=== PATIENT | female | born 1980 | race Caucasian/White ===

== ENCOUNTER 2021-12-01 13:30 | Outpatient (RCR) | payer MEDICARE, MEDICAID, SELFPAY | END 2022-09-22 23:59 | disposition home or self-care (01) | PROVIDERS: PCP Physician Assistant Medical; Visit Provider Physician Assistant | DX: Z51.89 Encounter for other specified aftercare (principal) ==

== ENCOUNTER 2022-03-04 13:45 | Outpatient (RCR) | payer MEDICARE, MEDICAID, SELFPAY ==
--- NOTE | 2021-12-02 10:59 | PT.OPDNX ---
PT [place] [facility] Daily Note PT [facility] Out[facility] Daily Note Start: 09/07/21 16:13 Freq: Status: Active Protocol: Document 12/01/21 16:04 ROQUE (Rec: 12/01/21 16:08 ROQUE [id number]) E-signed By NAMITA PelaezT, MS PT OP Daily Progress Note Visit Information Note Type Recert/Progress Note Visit Number [id number] Insurance Authorized Visits - Physician Authorized Visits Eval and treat Insurance Information Recert Due Date 02/16/22 Insurance Name Medicare B,Medicaid Medical Diagnosis Bilat. knee OA - patellofemoral and medial Treating Diagnosis Core weakness Quad weakness Subjective Subjective Pt reports her knees have continued to improve overall but fatigues quickly with pain in lateral R knee with extended standing. Worked 2 shifts to help short-staffing issues with elevated B knee and LS pain following. LS has been more painful this week and returns to [place] soon. Pain Comments R knees 0-4/10, L knee 0-3/10 LS 0-4/10 Objective Other/Pertinent Objective Gait: without AD improved quality with increased velocity, increased B stride length and B toe off. Patient Instructed in Risks/Benefits Yes Therapeutic Exercise Therapeutic Exercise Minutes (minutes) 30 Therapeutic Exercise: To Restore Recumb bike 8 min L4 for warm- Functional Status up and endurance calf stretching, quad stretching Progressed to 6 bridging 6 x 3 1 sec hold Supine may alt LE lifts 10 x 3 Progressed leg press 90# B 12 x 3 Progressed HS curl machine 30# 15 x 3 Progressed SLS light 1 UE support at counter Progressed to rows 3 plates and B shoulder ext 2.5 plates on CC standing partial tandem balance 8 x 3 each Side stepping progressed 20' x 6, 2 sets Manual Therapy Techniques Manual Therapy Minutes (minutes) 15 Manual Therapy Techniques *decreased B knee and LS pain following (03/15) STM/TPR B distal quad, ITB and distal HS Foam roller to length of B quad and ITB B LE long axis distraction with belt Patellar mobs Knee AP mobs G3-4 Other Interventions Provided Other Interventions Provided Ultrasound 12 min to B distal quads x 6 min each. 1.5 mHz Other Interventions Timed Minutes 12 Treatment Minutes Timed Code Treatment Minutes 57 Total Treatment Time 57 Billing Units Manual Therapy Units 1 Therapeutic Exercise Units 2 Ultrasound Units 1 Assessment/Impression Assessment/Impression Good response again to all activities today with minimal B knee and LS pain following. Elevated sxs after returning to 2 work shifts but sxs have improved in the days since. Pt remains deconditioned with continued B core and LE weakness leading to episodic elevations in B knee and LS pain with WBing activities. She has performed an FCE and is awaiting results to determine her level of disability. Excellent response to all exercises and progressions today with decreased fatigue levels with pt able to krupa increased session intensity without elevation in sxs. Pt will benefit from continued skilled PT services, progressing as able. Plan of Care Physical Therapy Goals 1. Pt. will be indep. with HEP for self maintenance in 8 weeks. Progressing. 2. Pt. will be report improved ability to walk with less bilat. knee pain in 8-12 weeks. Progressing 3. Pt. will be able to squat down for ADL's better in 8-12 weeks. Progressing 4. Pt will display improved strength for B hip ABD and ext >4/5 to improve quality of gait. Progressing. Daily Plan of Care Continue per POC Recertification Information Initial Certification Date 08/20/21 Recertification Start Date 11/18/21 Recertification Due Date 02/16/22 Reasons to Continue Skilled Therapy See assessment Rehabilitation Potential Good due to deconditioning and PMH. Continued Plan of Care and Interventions Continued MT, TE, NM re-ed 1x per week for 6-10 additional PT visits, transitioning to I sx management when pt moved to [place] in late December 2021. Provider Signature Shows Agreement With POC & Medical Necessity Physician Comment/Change Comment or Changes Physician NPI Number #
== END 2022-06-15 08:02 | disposition home or self-care (01) ==
PROVIDERS: PCP Physician Assistant Medical; Referring Provider Physician Assistant; Visit Provider Physician Assistant Surgical
DX: M17.0 Bilateral primary osteoarthritis of knee (principal); Z51.89 Encounter for other specified aftercare
CPT/HCPCS: 97035; 97110; 97140

== ENCOUNTER 2022-05-12 06:23 | Day surgery (SDC) | payer MEDICARE, MEDICAID, SELFPAY ==
--- NOTE | 2022-04-19 11:25 | SUR.PREOP ---
04/19/22 Had a brief phone visit with patient as she already had pre-op teaching before her surgery was postponed. She will schedule a pre-op H&P. Otherwise, denies questions. Danna REAL
[2022-05-12] VITALS (26 sets, daily range): BP systolic 86–148; BP diastolic 37–101; PULSE 53–101; RESP 16–20; TEMP 35.6–36.9; O2SAT 93–100; BMI 40.5
[2022-05-12] MEDS: LACTATED RINGERS 1000 ML 1,000 ML 100 ML IV (06:40)
[2022-05-12 07:06] LABS: Ur HCG Qualitative* Negative (Negative)
[2022-05-12] MEDS: CELECOXIB 200 MG CAPSULE PO (07:17)
[2022-05-12] MEDS: OXYCODONE (CR) 10 MG TAB.ER.12H PO (07:17)
[2022-05-12] MEDS: ACETAMINOPHEN 500 MG TABLET 1000 MG PO ×3 (07:17→20:13)
--- NOTE | 2022-05-12 07:47 | W.ANESCHARGE ---
Anesthesia Charges Start Date/Time Anesthesia Start Date: 05/12/22 Anesthesia Start Time: 08:41 Stop Date/Time Anesthesia Stop Date: 05/12/22 Anesthesia Stop Time: 11:15
[2022-05-12] MEDS: SODIUM CHLORIDE 0.9 % (FLUSH) 10 ML SYRINGE IVF (07:58)
--- NOTE | 2022-05-12 08:02 | SUR.PREOP ---
TIME?OUT:?0802 PT/RN/MDA?VERIFICATION?OF?SURGICAL?SITE,?PROCEDURE,?AND?CONSENT OBTAINED?PRIOR?TO?INVASIVE?PROCEDURE.
[2022-05-12] MEDS: fentaNYL 100 MCG/2 ML inj IVP (08:04)
[2022-05-12] MEDS: MIDAZOLAM HCL 1 MG/ML inj IVP (08:04)
--- NOTE | 2022-05-12 08:09 | P.NB_ITS ---
Nerve Block Nerve Block Time Seen by Provider: 08:06 Date Seen: 05/12/22 Type of block requested by surgeon for post-operative analgesia: geniculars Side: left Time out performed: Yes Verification of patient name: Yes Verification of date of : Yes Site marking: site marked Name of person performing procedure: Aidan Continuous monitoring Was continuous monitoring of O2 sat, B/P, environmental monitoring technician, recorded every 15 minutes?: Yes Procedure Checklist: sterile prep, needles and gloves Medications given in 5ml increments after negative aspiration: Ropivicaine %: 0.5 mL: 9 Needle gauge: 25 Patient tolerated procedure well: Yes Block Charges Block Charge (with Pro Fee): Genicular Nerve Block Use of Ultrasound Machine for Block: No
--- NOTE | 2022-05-12 08:09 | W.PM.NB ---
Nerve Block Nerve Block Time Seen by Provider: 08:06 Date Seen: 05/12/22 Type of block requested by surgeon for post-operative analgesia: adductor canal Side: left Time out performed: Yes Verification of patient name: Yes Verification of date of : Yes Site marking: site marked Name of person performing procedure: Aidan Continuous monitoring Was continuous monitoring of O2 sat, B/P, tomato pulper operator, recorded every 15 minutes?: Yes Procedure Checklist: sterile prep, needles and gloves Ultrasound guided. Images saved: Yes Medications given in 5ml increments after negative aspiration: Ropivicaine %: 0.5 mL: 20 Needle gauge: 20 Decadron (mg): 10 Precedex (mcg): 25 Patient tolerated procedure well: Yes Additional comments: Needle noted adjacent to nerve Block Charges Block Charge (with Pro Fee): Femoral Nerve Use of Ultrasound Machine for Block: Yes- US Guidance/pain block
--- NOTE | 2022-05-12 10:23 | CRLHL7_ITS ---
For Patients: As a result of the Cures Act, medical imaging exams and procedure reports are released immediately into your electronic medical record. You may view this report before your referring provider. If you have questions, please contact your health care provider. Indication: Postop TKA Technique: Two views left knee Findings/Impression: Hardware from a left total knee arthroplasty is in satisfactory position. Bone alignment is normal. No sign of acute fracture. Postop changes are within normal limits. Dictated by Colten Samaniego MD @ 05/12/2022 12:03:39 PM (Electronically Signed)
--- NOTE | 2022-05-12 10:26 | P.ORPRC_ITS ---
Procedure Note Date of procedure: 05/12/22 Procedure: PREOPERATIVE DIAGNOSIS: Left knee osteoarthritis POSTOPERATIVE DIAGNOSIS: Left knee osteoarthritis NAME OF OPERATION: Left total knee arthroplasty SURGEON: Timur Marin MD REPAIR ARMATURE WINDER HELPER: Daniel Aguilar PA-C ANESTHESIA: Spinal ESTIMATED BLOOD LOSS: 0 mL COMPLICATIONS: None SPECIMENS: None DRAINS: None PREOPERATIVE ANTIBIOTICS: Ancef 2 grams, antibiotic impregnated cement IMPLANTS: 1. J&J Attune # 6 narrow posterior stabilized femur 2. #4 fixed-bearing tibia, 14 mm x 50 mm stem 3. #6 posterior stabilized, 5 mm fixed-bearing polyethylene 4. 38 patella INDICATIONS: The patient is a 42-year-old with a longstanding history of severe, unrelenting left knee pain secondary to end-stage (grade IV) left knee osteoarthritis. Despite appropriate nonoperative management, including activity modification, anti-inflammatories, [id number] pain medication, bracing, physical therapy, and injections they continue to have pain and disability. Operative intervention was offered. The risks, benefits and expected outcomes were discussed in detail. These included but were not limited to: Infection, bleeding, injury to blood vessel or nerve, venous thromboembolism. All questions were answered to their satisfaction. Use of an assistant professor of chemistry was necessary throughout the case for patient positioning and safety, soft tissue retraction, and closure. A modifier 22 should be applied to this case. The patient's weight of 114 kg with a BMI of 40.6 kg/meter sq made exposure difficult. Additionally, because of the obesity a stemmed tibial component was used to reduce the risk of aseptic loosening. All of these factors added more than 50% of the time typically required to complete the case. PROCEDURE: Spinal anesthesia was administered. The patient was placed supine on the operating table. The assistant professor of chemistry made sure the patient was positioned appropriately. The lower extremity was prepped and draped in the usual sterile fashion. The limb was exsanguinated with the Travis bandage. The pneumatic tourniquet was inflated to 300 mmHg. A standard anterior incision was made with the knee in flexion. Subcutaneous dissection was sharply taken through fascial layer #1. Full-thickness medial and lateral flaps were elevated. The assistant professor of chemistry retracted the soft tissues and protected them throughout the case. A standard medial parapatellar approach was made. The patella was everted. The infrapatellar fat pad was preserved. The menisci and cruciate ligaments were sharply d?brided. Marginal osteophytes were d?brided with the rongeur. The drill was used to penetrate the femoral canal. The canal was aspirated and irrigated with pulse lavage. The intramedullary femoral guide was placed for a 5-degree valgus cut, removing 10 mm off the distal femur. The saw was used to make the cut. Whitesides line and the trans epicondylar axis were marked. The femoral sizing guide was pinned onto the distal femur. Three degrees of external rotation nicely parallels the transepicondylar axis. Pins were placed for posterior referencing. The four-in-one cutting guide was pinned onto the distal femur. The anterior, posterior, and chamfer cuts were made. The assistant professor of chemistry protected the collateral ligaments. The box cutting guide was pinned. The box cuts were made. The boxed trial was placed and was an excellent fit. Drill holes for the lugs were made. Attention was then turned to the proximal tibia. The extramedullary tibial guide was placed for a neutral varus/valgus cut with 5 degrees of posterior slope, removing 2 mm based off the medial tibial surface. The assistant professor of chemistry protected the collateral ligaments and the neurovascular bundle. The saw was used to make the cut. Trial components were placed. The knee was tight in both flexion and extension. Therefore, the guide was repaired and, advancing it 4 more mm distally. The saw was used to make the cut again. Trial components were placed and now the knee was nicely balanced in both flexion and extension. The trial components were removed. The tray was placed in appropriate rotation, parallel to our tibial cutting pins. It was pinned by the assistant professor of chemistry and the drill and the punch were used. The tray was removed. The punch was used again. We placed a bone plug in the femoral canal. Attention was then turned to the patella. [place] patellar thickness was 22 mm. The lobster claw resection guide was used with the 7.5 mm jessica. The saw was us ed to make the cut. Drill holes were made by the assistant professor of chemistry. The trial was placed and was an excellent fit. Cancellous surfaces were irrigated with pulse lavage and thoroughly dried by the assistant professor of chemistry. We cemented the tibial component, then the femoral component. We impacted the 5 mm polyethylene onto the tibial tray. The knee was brought into full extension. We then cemented the patellar component. Excessive cement was removed. The cement was allowed to harden. The knee was taken through a range of motion and was found to be nicely balanced in both flexion and extension. The patella tracks centrally. The assistant professor of chemistry did a three minute dilute Betadine solution soak. The assistant professor of chemistry irrigated the wound with 3 liters of normal saline via pulse lavage. The assistant professor of chemistry reapproximated the extensor mechanism with #1 Vicryl in an interrupted [id number]-ja-hxroi fashion. The assistant professor of chemistry then ran the extensor mechanism with a #1 PDO Stratafix. The assistant professor of chemistry closed the subcutaneous tissues with a 3-0 Stratafix and the skin with a running 3-0 Stratafix in a subcuticular fashion. Glue was used to seal the skin. The assistant professor of chemistry placed a dry dressing, YOLANDA stocking, and Polar Care. Sponge and needle counts were correct x2. The patient tolerated the procedure well. There were no apparent complications. They were carefully transferred to the hospital bed and taken to the postanesthesia care unit in satisfactory condition. PLAN: The patient will be mobilized with physical therapy. Aspirin will be used for DVT prophylaxis. They will be discharged to home once medically appropriate.
--- NOTE | 2022-05-12 11:20 | W.ANESCHARGE ---
Anesthesia Charges Start Date/Time Anesthesia Start Date: 05/12/22 Anesthesia Start Time: 08:41 Stop Date/Time Anesthesia Stop Date: 05/12/22 Anesthesia Stop Time: 11:15
[2022-05-12] MEDS: fentaNYL 100 MCG/2 ML inj 50 MCG IVP ×2 (11:31→11:36)
[2022-05-12] MEDS: HYDROmorphone 0.5 mg/0.5 ml inj IVP (12:40)
[2022-05-12] MEDS: OXYCODONE 5 MG TABLET PO ×2 (12:48→22:35)
--- NOTE | 2022-05-12 14:44 | PM.IMCN1 ---
Date of Consult Patient: Natalia Patient Consult date: 05/12/22 Requesting Physician: Orthopedics Primary Care Provider: Tere Montanez PA-C Consult Narrative Reason for consult: Postoperative medical management Narrative: Nadia Gutiérrez is a 42 year old female admitted to the hospital for left total knee arthroplasty. Procedures performed by Dr. Marin today. There were no complications. He has requested consultation for management of medical problems. She reports doing well at this time. She feels well except some mild left knee and leg discomfort which is well managed. No nausea or dyspnea. Preoperatively she reported that she was feeling well. Other than her knee pain she has been doing generally well recently. There were no significant medical problems identified on her preop physical. She had a sleep study to evaluate for sleep apnea in March. She is unaware of the results of that. Review of Systems Narrative: No recent illness or injury. Previous surgeries without any adverse reaction to anesthesia, bleeding or clotting problems. [facility] Medical History (Updated 05/12/22 @ 15:33 by James Bradshaw MD) Ankylosing spondylitis Anxiety Arthritis Bipolar affective disorder Borderline personality disorder Cellulitis of abdominal wall (2012) Chronic back pain Depression Fibromyalgia GERD (gastroesophageal reflux disease) History of back problems History of HPV infection History of muscle weakness Hyperlipidemia Ileus IUD (intrauterine device) in place Mental health problem Obesity Obstructive sleep apnea Posttraumatic stress disorder Substance abuse Vitamin D deficiency Surgical History (Updated 05/12/22 @ 15:30 by James Bradshaw MD) Dermoid cyst (~2012) History of colonoscopy History of esophagogastroduodenoscopy (EGD) History of incision and drainage History of left oophorectomy (2004) Hx of bilateral oophorectomy S/P herniorrhaphy (~2011) Status post laparoscopic cholecystectomy (02/04/19) Status post total left knee replacement (05/12/22) Family History Mother Diabetes Alcohol abuse Breast cancer COPD (chronic obstructive pulmonary disease) Colon cancer Maternal Grandfather Coronary artery disease Stroke Maternal Grandmother Breast cancer Sister PTSD (post-traumatic stress disorder) Bipolar 1 disorder Social History (Updated 05/12/22 @ 15:29 by James Bradshaw MD) Narrative: She lives in [place] with her children ages 11 and 12. They are currently in respite care/foster care. CPS case is pending. Her home in [place] has 1 step to get in to the main level. She has 13 steps to get to the bedroom or to get to the shower but she does have a bathroom on the main level. She sleeps on the couch in the living room normally. She intends to stay with a friend in [place] for the 1st week after surgery. She has a 16-year-old cousin living with her when she returns in a week. She starts outpatient physical therapy when she returns to [place]. Her friend in [place], Mendez Trinh, is healthcare power of personal injury attorney. She quit smoking about 8 years ago. She drinks alcohol about twice a month. She daily uses medical marijuana Smoking Status: Former smoker What tobacco products do you use: cigarettes Smoking quit date/years: <= 15 years ago Do you use any of these nicotine containing products: Vaping Products Smokeless tobacco user details: no nicotine Nicotine containing products detail: medical marijuana Second hand tobacco smoke exposure: No How often do you have a drink containing alcohol: monthly or less Alcohol type: hard liquor How many standard drinks containing alcohol do you have on a typical day: 1 or 2 How often do you have six or more drinks on one occasion: Never AUDIT-C Alcohol total score: 1 Non-prescribed substance use: marijuana (any form) Non-prescribed substance use details: medical marijuana, vaping or edibles Caffeine: Yes (Coke, 2 cans/day or less) Are you using contraception or practicing any form of control: Yes (IUD) Meds Home Medications and Allergies Home Medications Medication Instructions Recorded Confirmed Type cyclobenzaprine 10 mg tablet 10 mg PO BID PRN 10/01/21 05/12/22 History gabapentin 300 mg capsule 600 mg PO HS 10/01/21 05/12/22 History meloxicam 15 mg tablet 15 mg PO DAILY 10/01/21 05/12/22 History rizatriptan 10 mg disintegrating 10 mg PO DIRECTED PRN migraine 10/01/21 05/12/22 History tablet headache mirtazapine 15 mg tablet (Remeron) 7.5 mg PO QHS 03/28/22 05/12/22 History omeprazole 20 mg capsule,delayed 20 mg PO DAILY 03/28/22 05/12/22 History release polyethylene glycol 3350 17 17 g PO BID PRN 03/28/22 05/12/22 History gram/dose oral powder (Miralax) Allergies Allergy/AdvReac Type Severity Reaction Status Date / Time No Known Drug Allergies Allergy Verified 01/19/22 14:26 Exam Narrative: Exam Narrative: She is alert and appears in no distress. She is pleasant. She gives her own history with good detail. Eyes normal. Oropharynx with small airway. Neck is supple without mass or adenopathy. Respirations are clear to auscultation. Cardiovascular: S1, S2, regular rate and rhythm. No murmur gallop or rub. Abdomen: Bowel sounds active. Abdomen is soft without tenderness or mass. Extremities with intact pulses and sensation. Foot and ankle strength is equal bilaterally. No edema. Const: Vital Signs, click to edit/add: Vital Signs - 24 hr 05/12/22 08:00 05/12/22 08:05 05/12/22 08:15 Temperature 97.2 F L Pulse Rate 65 75 68 Respiratory Rate 16 16 16 Blood Pressure 125/85 111/86 107/72 Blood Pressure [Le ft Arm] Pulse Oximetry 94 97 93 Oxygen Delivery Me thod Room Air Nasal Cannula Nasal Cannula Oxygen Flow Rate 3 3 05/12/22 08:10 05/12/22 08:20 05/12/22 08:25 Temperature Pulse Rate 69 69 71 Respiratory Rate 16 16 16 Blood Pressure 110/84 103/70 101/68 Blood Pressure [Le ft Arm] Pulse Oximetry 93 97 96 Oxygen Delivery Me thod Nasal Cannula Nasal Cannula Nasal Cannula Oxygen Flow Rate 3 3 3 05/12/22 11:14 05/12/22 11:20 05/12/22 11:25 Temperature 98.5 F Pulse Rate 72 72 53 L Respiratory Rate 20 20 20 Blood Pressure 86/37 L 112/72 94/75 Blood Pressure [Le ft Arm] Pulse Oximetry 94 94 96 Oxygen Delivery Me thod Room Air Room Air Room Air Oxygen Flow Rate 05/12/22 11:30 05/12/22 11:35 05/12/22 11:40 Temperature Pulse Rate 59 L 60 53 L Respiratory Rate 20 20 20 Blood Pressure 101/72 112/73 103/86 Blood Pressure [Le ft Arm] Pulse Oximetry 96 96 96 Oxygen Delivery Me thod Room Air Room Air Room Air Oxygen Flow Rate 3 05/12/22 11:45 05/12/22 12:00 Temperature 98.5 F 96.1 F L Pulse Rate 72 78 Respiratory Rate 20 16 Blood Pressure 102/86 Blood Pressure [Le ft Arm] 111/66 Pulse Oximetry 96 Oxygen Delivery Me thod Room Air Room Air Oxygen Flow Rate Documenting provider has reviewed patient's vital signs: yes Assessment and Plan Assessment and plan (1) Status post total left knee replacement: Problem comment: 05/12/2022, Dr. Marin. No operative complications. Status: Acute (2) Obstructive sleep apnea: Problem comment: Home sleep study apparently done but results not available Status: Suspected (3) Chronic back pain: Status: Acute (4) Mental health problem: Problem comment: Patient has ongoing mental health concerns which appear to be well managed at this point. Status: Acute Plan Anticipate routine management of pain and routine therapy. Supportive care for other chronic pain and mental health issues. Patient has made a plan for outpatient support and management. Before discharge make sure all of the pieces of this plan are in place. Total time spent today is 40 minutes, 30 minutes in coordination of care discussing with patient and other providers ongoing evaluation management of medical problems and postoperative care
--- NOTE | 2022-05-12 15:27 | PC.NURSE ---
Pt arrived to room 258 s/p Left TKA with Dr. Marin @ 1200 in her hospital bed. Please see initial assessment from PACU and frequent post op VS. Eval by PT and Dr. Bradshaw. Tona CL diet and advanced to regular diet. Up in recliner. Pt has not yet voided since arrival on med/surg. Bilateral knee high teds, plexi pulses and cryocuff in place per post op protocol. Report to Jenifer Murray RN for evening shift.
[2022-05-12] MEDS: CEFAZOLIN 2 GM in 0.9 % SODIUM CHLORIDE Mini-bag 100 ML IVPB (15:41)
[2022-05-12] MEDS: GABAPENTIN 300 MG CAPSULE 600 MG PO ×2 (15:41→22:34)
[2022-05-12] MEDS: SENNOSIDES 1 TAB TABLET 2 TAB PO (20:13)
[2022-05-12] MEDS: ASPIRIN 81 MG TABLET EC PO (20:14)
[2022-05-12] MEDS: MIRTAZAPINE 15 MG TABLET 7.5 MG PO (22:35)
--- NOTE | 2022-05-12 22:49 | PC.NURSE ---
Shift Note [id number]: Pt friendly and cooperative. VSS and LS COA. Rates pain to left knee 3-6/10, PRN Oxycodone given for discomfort. Surgical dressing C,D,&I with cryocuff in place. Pt is moving well with assist x1 with GB and walker. Voiding regularly with excellent PO intake, she has been saline locked. Plans to discharge home tomorrow in the care of her friend Maria Antonia.
[2022-05-13] MEDS: CEFAZOLIN 2 GM in 0.9 % SODIUM CHLORIDE Mini-bag 100 ML IVPB ×2 (00:14→06:57)
[2022-05-13] MEDS: SODIUM CHLORIDE 0.9 % (FLUSH) 10 ML SYRINGE 5 ML IVF (01:10)
[2022-05-13] MEDS: ACETAMINOPHEN 500 MG TABLET 1000 MG PO ×2 (01:11→08:29)
[2022-05-13 03:00] VITALS: RESP 18
--- NOTE | 2022-05-13 05:14 | PC.NURSE ---
END OF SHIFT NOTE: PT PLEASANT AND COOPERATIVE. PT DENIES CP, SOB, N/V. AMBULATES WITH WALKER, SBA. VSS ON RA; AFEBRILE. CRYO CUFF TO LEFT KNEE. PT RATES LEFT KNEE PAIN 3/10 WITH RELIEF FROM ICE, ELEVATION, REST, AND MEDICATION. BED ALARM ON AND CALL LIGHT WITHIN PT?S REACH.?
[2022-05-13] MEDS: OXYCODONE 5 MG TABLET PO ×2 (06:08→08:31)
[2022-05-13] MEDS: OMEPRAZOLE 20 MG CAPSULE DR PO (06:08)
[2022-05-13 06:50] LABS: Basophils Percent Auto 0.1 % (0.0-3.0); Hematocrit 41.1 % (33.0-51.0); Hemoglobin* 13.7 gm/dL (12.0-16.0); Immature Granulocytes Pct Auto 0.1 %; Lymphocytes Percent Auto 20.2 % (20-44); Mean Corpuscular HGB Conc 33 gm/dL (32-36); Mean Corpuscular Hemoglobin 29 pg (26-34); Mean Corpuscular Volume 86 fL (80-100); Monocytes Percent Auto 8.7 % (0.0-11.0); Neutrophils Percent Auto 70.9 % (42.0-72.0); Platelet Count* 300 K/uL (140-440); RDW Coefficient of Variation % 12.2 % (11.5-15.5); White Blood Count* 14.97 K/uL (4.50-11.00)
[2022-05-13 06:58] LABS: Slide Review Reflex No
[2022-05-13 07:00] VITALS: BP 123/77; PULSE 91; RESP 18; RESP 20; TEMP 36.6; O2SAT 97
[2022-05-13 07:01] LABS: Potassium* 3.9 mmol/L (3.6-5.1); Sodium* 137 mmol/L (135-149)
[2022-05-13 07:03] LABS: INR 1.13 (0.91-1.10); Prothrombin Time 15.2 Seconds
[2022-05-13 07:04] LABS: Blood Urea Nitrogen* 13 mg/dL (5-24); Creatinine* 0.6 mg/dL (0.5-1.5); Est. Creatinine Clearance* 114.34; Estimated Glomerular Filt Rate 115 ml/min
[2022-05-13] MEDS: SENNOSIDES 1 TAB TABLET 2 TAB PO (08:30)
[2022-05-13] MEDS: ASPIRIN 81 MG TABLET EC PO (08:31)
--- NOTE | 2022-05-13 10:31 | PC.SOCIAL ---
Discharge plan: Met with patient, MCKAY about discharge plan. TJ states that she will be going to her friends home and staying for a week while she needs assistance. She will then return home, where another friend will be able to help her out as needed. No other questions or concerns. Social work will follow up as needed.
--- NOTE | 2022-05-13 10:32 | PM.ORPN ---
Subjective Subjective Time Seen by Provider: 08:00 Date Seen: 05/13/22 Principal diagnosis: Status post left knee replacement Interval history: TJ is doing well this morning. She has some discomfort posterior knee. She will be discharging to home with a friend today. Ortho Exam Narrative Exam Narrative: Alert and oriented x3. Patient is in no acute distress. Converses without labored breathing. Hearing is grossly intact. Ambulates with a walker. Examination of the left knee shows the dressing is intact. Effusion is present. Mild soft tissue edema about the left knee. No erythema or ecchymosis. CMS is intact left lower extremity. Bilateral calves are soft and nontender. Const Vital Signs, click to edit/add: Vital Signs - 24 hr 05/12/22 11:14 05/12/22 11:20 05/12/22 11:25 Temperature 98.5 F Pulse Rate 72 72 53 L Pulse Rate [Right Pulse Oximeter] Respiratory Rate 20 20 20 Blood Pressure 86/37 L 112/72 94/75 Blood Pressure [Left Arm] Blood Pressure [Right Arm] Pulse Oximetry 94 94 96 Oxygen Delivery Method Room Air Room Air Room Air Oxygen Flow Rate 05/12/22 11:30 05/12/22 11:35 05/12/22 11:40 Temperature Pulse Rate 59 L 60 53 L Pulse Rate [Right Pulse Oximeter] Respiratory Rate 20 20 20 Blood Pressure 101/72 112/73 103/86 Blood Pressure [Left Arm] Blood Pressure [Right Arm] Pulse Oximetry 96 96 96 Oxygen Delivery Method Room Air Room Air Room Air Oxygen Flow Rate 3 05/12/22 11:45 05/12/22 12:00 05/12/22 12:15 Temperature 98.5 F 96.1 F L 97.8 F Pulse Rate 72 78 Pulse Rate [Right Pulse Oximeter] 66 Respiratory Rate 20 16 16 Blood Pressure 102/86 Blood Pressure [Left Arm] 111/66 101/74 Blood Pressure [Right Arm] Pulse Oximetry 96 97 Oxygen Delivery Method Room Air Room Air Room Air Oxygen Flow Rate 05/12/22 12:30 05/12/22 12:45 05/12/22 13:00 Temperature Pulse Rate Pulse Rate [Right Pulse Oximeter] 55 L 55 L 75 Respiratory Rate 16 16 16 Blood Pressure Blood Pressure [Left Arm] 108/85 104/94 H 122/80 Blood Pressure [Right Arm] Pulse Oximetry 100 97 95 Oxygen Delivery Method Room Air Room Air Room Air Oxygen Flow Rate 05/12/22 13:30 05/12/22 14:00 05/12/22 15:00 Temperature Pulse Rate Pulse Rate [Right Pulse Oximeter] 80 81 Respiratory Rate 16 Blood Pressure Blood Pressure [Left Arm] 128/87 123/71 Blood Pressure [Right Arm] Pulse Oximetry 95 97 97 Oxygen Delivery Method Room Air Room Air Oxygen Flow Rate 05/12/22 15:00 05/12/22 15:00 05/12/22 16:00 Temperature Pulse Rate Pulse Rate [Right Pulse Oximeter] 100 98 96 Respiratory Rate 16 Blood Pressure Blood Pressure [Left Arm] 141/94 H 138/70 Blood Pressure [Right Arm] Pulse Oximetry 97 95 Oxygen Delivery Method Room Air Room Air Oxygen Flow Rate 05/12/22 17:00 05/12/22 18:00 05/12/22 19:00 Temperature Pulse Rate Pulse Rate [Right Pulse Oximeter] 97 101 H 100 Respiratory Rate Blood Pressure Blood Pressure [Left Arm] 148/91 H 132/90 H 138/101 H Blood Pressure [Right Arm] Pulse Oximetry 95 94 95 Oxygen Delivery Method Room Air Room Air Room Air Oxygen Flow Rate 05/12/22 23:00 05/12/22 23:00 05/13/22 03:00 Temperature Pulse Rate Pulse Rate [Right Pulse Oximeter] 87 Respiratory Rate 18 18 Blood Pressure Blood Pressure [Left Arm] Blood Pressure [Right Arm] Pulse Oximetry 94 Oxygen Delivery Method Room Air Oxygen Flow Rate 05/13/22 07:00 05/13/22 07:00 05/13/22 07:00 Temperature 98 F Pulse Rate Pulse Rate [Right Pulse Oximeter] 91 91 Respiratory Rate 18 20 Blood Pressure Blood Pressure [Left Arm] Blood Pressure [Right Arm] 123/77 Pulse Oximetry 97 97 Oxygen Delivery Method Room Air Oxygen Flow Rate Assessment and Plan Assessment and plan (1) Status post total left knee replacement: Problem details: 05/12/2022, Dr. Marin. No operative complications. Status: Acute Assessment and Plan: Plan for discharge is today to home if they meet discharge criteria. DVT prophylaxis includes aspirin 81 mg twice daily x1 month, Neil stockings x1 month may remove for 1 hr per day, frequent ambulation Remove dressing in 1 week. Observe wound and phone Orthopedics with any questions or concerns Return to clinic in 1 week for a wound check Return to clinic in [address] Marin Minimize narcotic use. Wean off and discontinue soon as possible. We spoke about narcotic use. She does not plan on using much at all. Activities as tolerated. No strenuous activity. Outpatient physical therapy as scheduled. Ice and elevate the operative extremity. No restriction on ice. (2) Obstructive sleep apnea: Problem details: Home sleep study apparently done but results not available Status: Suspected (3) Chronic back pain: Status: Acute (4) Mental health problem: Problem details: Patient has ongoing mental health concerns which appear to be well managed at this point. Status: Acute
--- NOTE | 2022-05-13 12:14 | PC.NURSE ---
Nursing Care Hours: [id number] Pt this shift alert and oriented, cooperative and talkative. SB assist with walker. VSS, pain peak was 8/10, treated per eMAR, pain decreased per pt, and tolerated PT well. Cyro-cuff on, SCD active, and TEDs removed at discharge. Instructed to place back on after 1 hour. IV DC'd for discharge, Coban and gauze applied. No SOB or chest pain. Bandage CDI, some swelling above and below the bandage. DC instructions provided, all questions and concerns answered. wheeled out to vehicle with friend.
== END 2022-05-13 11:30 | disposition home or self-care (01) ==
LOC: OR 06:42 → MEDSURG 06:44
PROVIDERS: PCP Physician Assistant Medical; Visit Provider Orthopaedic Surgery
PROC: (CPT 27447; principal; 2022-05-12 08:15)
DX: M17.12 Unilateral primary osteoarthritis, left knee (principal); G47.33 Obstructive sleep apnea (adult) (pediatric); M54.9 Dorsalgia, unspecified; G89.29 Other chronic pain; Z68.41 Body mass index [BMI] 40.0-44.9, adult; E66.9 Obesity, unspecified
CPT/HCPCS: 27447; 01402; 36415; 73560; 76942; 81025; 82565; 84132; 84295; 84520; 85025; 85610; 97110; 97116; 97161; 97165; 97530; A9270; C1776; J0690; J1100; J1170; J2250; J2704; J2795; J3010; J7120

== ENCOUNTER 2022-10-28 13:00 | Outpatient (RCR) | payer MEDICARE, MEDICAID, SELFPAY ==
--- NOTE | 2022-03-18 14:56 | PT.OPEX ---
PT [place] Outpatient Eval SIGN INITIAL EVAL MEDICARE Pt PT [facility] Outpatient Eval Start: 03/18/22 11:19 Freq: Status: Active Protocol: Document 03/18/22 11:20 DENISE (Rec: 03/18/22 11:54 DENISE [id number]) E-signed By Hansel Quinones DPT Physical Therapy Outpatient Evaluation Insurance Information Insurance Name Medicare B Medical Diagnosis unilateral L knee OA, pre op TKA Treating Diagnosis muscle weakness , gait abnormality, L knee pain Referring MD Timur Marin Subjective Subjective Nadia comes into clinic today for her pre-operative visit prior to her L TKA surgery on 03/29/22. States she lives on her own but will be getting help for a couple days from a friend. Will be d/c from hospital ideally to friends house. Otherwise at her home she has 1 stair to get inside with L hand rail. In side she sleeps on the couch on the main floor. She does have stairs she use to get to her bedroom or shower. Has a spc and 4ww at home but is unsure she can afford to get a fww. Date of Surgery (If applicable) 03/29/22 Current Work Status Unemployed Precautions Treatment Precautions/Contraindications Bipolar, PTSD, ankylosing spondylitis, depression. arthritis Objective Other/Pertinent Objective GAIT/FUNCTIONAL MOBILITY decreased pace, increased Trendelenburg deviations KNEE ROM L 4 -123 R 1- 128 LLE MMT: Hip flexion: R 4+/5 L 4+/5 Hip abduction: R 4+/5 L 4-/5 Knee flexion: R 4+/5 L4+ /5 Knee extension: R 5/5 L 4+/5 long sitting quad set x10 w/5 sec isometric hold performed ankle pumps x10 supine hamstring sets x10 w/5 sec isometric hold supine SAQ x10 w/cueing for isometric contraction at top of arc of motion with slow eccentric supine SLR flexion x10 w/ cueing for isometric contraction at top of arc of motion with slow eccentric supine heel slide x 10 w/3-5 sec hold at end range holding for stretch seated LAQ x10 w/cueing for isometric contraction at top of arc of motion with slow eccentric seated heel slides x5 with 30 sec holds into stretch passive knee ext stretch x 3 min - education on longer duration post-o educated on frequency to perform HEP post operatively Assessment Assessment/Impression Extensive discussion and education on what to expect post operatively. Time was spent discussing home modifications, Assistive devices, pain control, fall prevention, hospital stay time line, and assist needed for activities post surgically. Pt questions were answered and demonstrated understanding. PRE-OP Patient presents with signs and symptoms consistent with diagnosis of L knee OA , surgery on 03/29/22. Rehab potential isgood . Chambers impairments include: decreased ROM and strength of the extremity, poor balance and compensatory gait patterning, pain/limitations with functional activities such as squatting, walking, and climbing stairs. Skilled PT is required to address these chambers impairments and to provide and progress with an appropriate home exercise program. This evaluation is of complexity due to the changing nature of the patient ?s presentation as well as the comorbidities and medical factors included in this evaluation. Plan of Care Rehabilitation Potential Good Physical Therapy Goals TKA GOALS STG (within 6 weeks) 1) Pt will improve knee AROM at least 0 to 100 for improved sit to stand transfers 2) Pt will demonstrate negative extensor lag during straight leg raise exercise with ability to complete at least 15 reps with 5 sec hold to improve strength for ambulation 3) Patient will demonstrate/ report ability to walk for 30 minutes w/SPC with pain level <1/10, to allow for community and household ambulation within 5 weeks LTG: (within 10 weekjs) 1) Pt will be indep with HEP for skilled nursing management of pain/symptoms 2) Pt will improve knee AROM at least 0 to 120 for improved sit to stand transfers 3) Patient will ascend/descend at least 12 steps using single rail and reciprocal pattern to improve ease of mobility at home/community 4) Patient will demonstrate/ report ability to walk for 60 minutes w/o AD with pain level <1/10, to allow for community and household ambulation within 10 weeks Coordination/Communication With Referral Source Treatment Plan/Direct Interventions Gait Training,Joint Mobilization,Manual Therapy, Neuromuscular Re-ed,Self-Care/ Home Management,Therapeutic Activities,Therapeutic Exercises Frequency/Duration 1-2 times a week for 8-12 weeks Patient Will Be Discharged From Therapy Completion of LTG(s), Independently Progressing Evaluation Billing Complexity Low Certification Information Initial Certification Date 03/18/22 Ending Certification Date 06/11/22 Physician Comment/Change : Physician NPI Number #
--- NOTE | 2022-06-14 14:34 | PT.OPDNX ---
PT [place] Outpatient Daily Note PT [facility] Outpatient Daily Note Start: 03/18/22 14:54 Freq: Status: Active Protocol: Document 06/14/22 14:17 ROQUE (Rec: 06/14/22 14:34 ROQUE [id number]) E-signed By NAMITA PelaezT, MS PT OP Daily Progress Note Visit Information Note Type Recert/Progress Note Visit Number 9 Physician Authorized Visits Eval and treat Insurance Information Recert Due Date 06/16/22 Insurance Name Medicare B Medical Diagnosis unilateral L knee OA, post-op TKA Treating Diagnosis muscle weakness , gait abnormality, L knee pain Referring MD Timur Marin Subjective Subjective Pt reports her knee is feeling significantly better over the past few days being able to walk more only using a SPC. Continues to experience swelling later in the day but this is improving. Distal ITB and hamstrings have been sorer lately. Continues to experience spasm sensations and has not been able to get a refill of Flexeril. Pain Comments -06/13 Preferred Name TJ Precautions Treatment Precautions/Contraindications Bipolar, PTSD, ankylosing spondylitis, depression. arthritis Objective Other/Pertinent Objective GAIT/FUNCTIONAL MOBILITY Gait: with SPC on R stable pattern with improved velocity and toe off Stairs: stable step-to pattern ascending<>descending with 1 railing 8 stairs KNEE ROM L 0-1-96 with pain R 0-1- 128 Strength QS: L of good quality SLR: L requiring min A Hip flex: R 4+/5, L 4/5 Knee ext: R 5/5, L 4+/5 Knee flex: R 4+/5, L 4/5 Hip ABD: R 4-/5, L 3+/5 Hip ext: R 4/5, L 4-/5 Edema: trace diffuse L knee edema Observation: diffuse L distal hamstring and mid quad ecchymosis Patient Instructed in Risks/Benefits Yes Therapeutic Exercise Therapeutic Exercise Minutes (minutes) 45 Therapeutic Exercise: To Restore Long and short sitting quad Functional Status set x10 w/5 sec improving to good quality Progressed to standing HS curls at counter 6 x 3 Supine heel slides I improving to 75 deg today. Progressed supine SLR with min A 8 x 3 seated heel slides 10 3 sets with 5-10 sec hold I. Improved to 96 deg NuStep progressed L3 resistance x 8 min for ROM and endurance Standing gastroc stretch Seated HS stretch Standing hip ABD and ext at counter progressed 7 x 3 with fatigue Heel raises progressed 12 x 3 Progressed to leg press seat 5 55# Progressed to HS curl machine 20# Reviewed proper gait mechanics with a SPC on R for increased toe off with heel-toe mechanics with a stable pattern following. Treatment Minutes Timed Code Treatment Minutes 45 Total Treatment Time 45 Billing Units Manual Therapy Units 1 Therapeutic Exercise Units 2 Assessment/Impression Assessment/Impression Notable improvement in L knee ROM, L quad and glute activation and quality of gait today. Quad NM activation continues to improv but L LE remains very weak being unable to perform a SLR following her fall last week. Able to progress to weight lifting machines with decreased fatigue levels. She is progressing slower than the typical recovery after a TKA but her significant PMH for mental health, R knee OA, B hip and LS pain, and ankylosing spondylitis combined with recent fall leading to slower rate of improvement. Pt will benefit from continued skilled PT services, progressing as able. Plan of Care Physical Therapy Goals TKA GOALS STG (within 6 weeks) 1) Pt will improve knee AROM at least 0 to 100 for improved sit to stand transfers. Progressing 2) Pt will demonstrate negative extensor lag during straight leg raise exercise with ability to complete at least 15 reps with 5 sec hold to improve strength for ambulation. Progressing 3) Patient will demonstrate/ report ability to walk for 30 minutes w/SPC with pain level <1/10, to allow for community and household ambulation within 5 weeks. 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 Progressing. 2) Pt will improve knee AROM at least 0 to 120 for improved sit to stand transfers. Progressing 3) Patient will ascend/descend at least 12 steps using single rail and reciprocal pattern to improve ease of mobility at home/community. Progressing 4) Patient will demonstrate/ report ability to walk for 60 minutes w/o AD with pain level <1/10, to allow for community and household ambulation within 10 weeks. Progressing Daily Plan of Care Continue per POC Daily Plan of Care Comments Progress L knee ROM, L LE flexibility, strength, balance and gait, as able. Recertification Information Initial Certification Date 03/18/22 Recertification Start Date 06/16/22 Recertification Due Date 09/14/22 Reasons to Continue Skilled Therapy See assessment. Pt continues to display significant L LE weakness, imbalance, decreased L knee ROM and gait dsyfunction. Rehabilitation Potential Excellent Continued Plan of Care and Interventions Continue TE, MT, NM re-ed, gait training 2x per week for 8-14 additional PT visits, decreasing frequency as able. Provider Signature Shows Agreement With POC & Medical Necessity Physician Comment/Change Comment or Changes Physician NPI Number #
--- NOTE | 2022-09-16 12:38 | PT.OPDNX ---
PT [facility] Daily Note PT [facility] Outpatient Daily Note Start: 03/18/22 14:54 Freq: Status: Active Protocol: Document 09/16/22 12:14 ROQUE (Rec: 09/16/22 12:38 ROQUE [id number]) E-signed By NAMITA PelaezT, MS PT OP Daily Progress Note Visit Information Note Type Recert/Progress Note Visit Number [id number] Physician Authorized Visits Eval and treat Insurance Information Recert Due Date 09/14/22 Insurance Name Medicare B,[employer] Medical Diagnosis unilateral L knee OA, post-op TKA Treating Diagnosis muscle weakness , gait abnormality, L knee pain Referring MD Timur Marin Subjective Subjective Pt reports her R knee remains sore and stiff with sleep remaining affected by knee pain/ tightness. Descending stairs remains very challenging due to tightness and pain. Amb >4-5 min remains limited by fatigue and weakness. HEP going well but it is noticeable she hasn't been able to get in to PT for >2 weeks. Pain Comments 0-4/10 Preferred Name TJ Precautions Treatment Precautions/Contraindications Bipolar, PTSD, ankylosing spondylitis, depression. arthritis Objective Other/Pertinent Objective Gait: without AD stable pattern with decreased L stride length and velocity KNEE ROM L 0-0-122 Stairs: stable reciprocal pattern 1 railing ascending with step-to pattern descending with 1 railing 8 stairs SLS: R 6 sec mild sway, L 5 sec mod sway KNEE ROM L 0-1-99 with pain R 0-1- 128 Strength Hip flex: R 5/5, L 4+/5 Knee ext: R 5/5, L 4+/5 Knee flex: R 5/5, L 4+/5 Hip ABD: R 4/5, L 4-/5 Hip ext: R 4+/5, L 4-/5 Edema: minimal diffuse L knee edema Patient Instructed in Risks/Benefits Yes Therapeutic Exercise Therapeutic Exercise Minutes (minutes) 45 Therapeutic Exercise: To Restore intermittent rest needed Functional Status throughout session bike x 8 min - again able to go backwards without pain dl leg press #90 10 x 3 knee ext machine 20# 10 x 3 hamstring curl #40 10 x 3 red tb seated hip abd-er 3x 10 B, alt leg 3x 10B Progressed standing hip ABD RTB above knees 7 x 3 Side stepping progressed RTB above knees 25' x 4, 3 sets with fatigue calf raises x 12, 2x10B with weight shift alternate leg. gastroc stretch in standing Progressed step ups 6 6 x 3 and 4 step downs 6 x 3 with 1 railing with fatigue Treatment Minutes Timed Code Treatment Minutes 45 Total Treatment Time 45 Billing Units Therapeutic Exercise Units 3 Assessment/Impression Assessment/Impression Pt continues to display slow but steady weekly progress with improvement in quality of gait, L knee ROM and L LE strength with full rev on bike in each direction. B (L>R) LE weakness and deconditioning remains with slow improvement. Excellent response again to progression of LE strengthening and dynamic balance exercises with fatigue following. Emphasized importance gradually increasing standing and walking distances and durations. She continues to progress slower than the typical recovery after a TKA but her significant PMH for mental health, migraine DE JESUS hx, R knee OA, B hip and LS pain, and ankylosing spondylitis combined with recent fall leading to slower rate of improvement. Pt will benefit from continued skilled PT services with 1x per week for 6-10 additional visits, decreasing visit frequency and transitioning to I sx management with her HEP, as able. Plan of Care Physical Therapy Goals TKA GOALS STG (within 6 weeks) 1) Pt will improve knee AROM at least 0 to 100 for improved sit to stand transfers. Progressing 2) Pt will demonstrate negative extensor lag during straight leg raise exercise with ability to complete at least 15 reps with 5 sec hold to improve strength for ambulation. Progressing 3) Patient will demonstrate/ report ability to walk for 30 minutes w/SPC with pain level <1/10, to allow for community and household ambulation within 5 weeks. Progressing LTG: (within 14 weekjs) 1) Pt will be indep with HEP for [facility] management of pain/symptoms. Progressing. 2) Pt will improve knee AROM at least 0 to 120 for improved sit to stand transfers. Progressing 3) Patient will ascend/descend at least 12 steps using single rail and reciprocal pattern to improve ease of mobility at home/community. Progressing 4) Patient will demonstrate/ report ability to walk for 60 minutes w/o AD with pain level <1/10, to allow for community and household ambulation within 10 weeks. Progressing Daily Plan of Care Continue per POC Daily Plan of Care Comments Progress L knee ROM, L LE flexibility, strength, balance and gait, as able. Recertification Information Initial Certification Date 03/18/22 Recertification Start Date 09/14/22 Recertification Due Date 12/13/22 Reasons to Continue Skilled Therapy See assessment. Pt continues to display L LE weakness, imbalance, decreased L knee ROM and gait dysfunction. Rehabilitation Potential Good due to chronic nature of sxs, deconditioning, obesity and L knee and LS degenerative changes Continued Plan of Care and Interventions Continue TE, MT, NM re-ed, gait training 1x per week for 6-10 additional PT visits, decreasing frequency as able. Provider Signature Shows Agreement With POC & Medical Necessity Physician Comment/Change Comment or Changes Physician NPI Number #
== END 2022-11-03 15:35 | disposition home or self-care (01) ==
PROVIDERS: PCP Physician Assistant Medical; Visit Provider Orthopaedic Surgery
DX: M17.12 Unilateral primary osteoarthritis, left knee (principal); M62.81 Muscle weakness (generalized); M25.562 Pain in left knee; R26.9 Unspecified abnormalities of gait and mobility; Z96.659 Presence of unspecified artificial knee joint; Z51.89 Encounter for other specified aftercare
CPT/HCPCS: 97035; 97110; 97116; 97140; 97161; 97164

== ENCOUNTER 2023-01-04 15:15 | Outpatient (RCR) | payer MEDICARE, MEDICAID, SELFPAY | END 2023-03-21 10:32 | disposition home or self-care (01) | PROVIDERS: PCP Physician Assistant Medical; Visit Provider Physician Assistant Surgical | DX: M25.561 Pain in right knee (principal); G89.29 Other chronic pain; M17.11 Unilateral primary osteoarthritis, right knee; M54.50 Low back pain, unspecified; M25.552 Pain in left hip; M25.551 Pain in right hip; M25.571 Pain in right ankle and joints of right foot; M79.672 Pain in left foot; M25.372 Other instability, left ankle; M25.371 Other instability, right ankle; R26.9 Unspecified abnormalities of gait and mobility; R29.898 Other symptoms and signs involving the musculoskeletal system; Z51.89 Encounter for other specified aftercare | CPT/HCPCS: 97110; 97140; 97162; 97164 ==

== ENCOUNTER 2023-06-06 16:15 | Outpatient (RCR) | payer MEDICARE, MEDICAID, SELFPAY | END 2023-10-04 23:59 | disposition home or self-care (01) | PROVIDERS: PCP Physician Assistant Medical; Visit Provider Physician Assistant Medical | DX: M75.21 Bicipital tendinitis, right shoulder (principal); M25.511 Pain in right shoulder; Z51.89 Encounter for other specified aftercare | CPT/HCPCS: 97110; 97140; 97162 ==

== ENCOUNTER 2023-06-07 08:06 | Outpatient (CLI) | payer MEDICARE, MEDICAID, SELFPAY | END 2023-06-07 08:07 | disposition home or self-care (01) | PROVIDERS: PCP Physician Assistant Medical; Visit Provider Internal Medicine | DX: G47.33 Obstructive sleep apnea (adult) (pediatric) (principal); R09.02 Hypoxemia | CPT/HCPCS: 95811 ==